=== PATIENT | female | born 1935 | race Asian ===

== ENCOUNTER 2017-08-11 11:36 | Emergency (ER) | payer MEDICARE, MEDICAID ==
[~2017-08-11] VITALS: Ht 154.9 cm; Wt 49.4 kg
[~2017-08-11 11:36] MED LIST: BENA20TA70 PO; NIFE90TA25 PO; SOTA80TA PO
[2017-08-11] MEDS ORDERED: HYDROcodone-ACET 5/325MG TAB PO ONE (16:30)
[2017-08-11 16:48] VITALS: BP 112/63
== END 2017-08-11 16:48 | disposition home or self-care (01) ==
LOC: ER 11:36
DX: M47.26 Other spondylosis with radiculopathy, lumbar region (principal); M10.9 Gout, unspecified; J44.9 Chronic obstructive pulmonary disease, unspecified; I50.9 Heart failure, unspecified; E11.9 Type 2 diabetes mellitus without complications; I11.0 Hypertensive heart disease with heart failure; M54.5 Low back pain; G89.29 Other chronic pain; Z95.0 Presence of cardiac pacemaker; Z90.49 Acquired absence of other specified parts of digestive tract
CPT/HCPCS: 72100

== ENCOUNTER 2018-01-20 11:38 | Inpatient (IN) | payer MEDICARE, MEDICAID ==
[~2018-01-20] VITALS: Ht 152.4 cm; Wt 49.1 kg
[2018-01-20 13:47] LABS: Basophils # (auto) 0.1 uL; Basophils % (auto) 1.3 % (0.0-2.0); Eosinophils # (auto) 0.6 uL; Eosinophils % (auto) 11.2 % (0.0-7.0); Hematocrit 34.7 % (36.0-46.0); Hemoglobin 11.5 g/dL (12.2-16.2); Lymphocytes # (auto) 1.3 uL; Lymphocytes % (auto) 23.5 % (10.0-50.0); Mean Corpuscular Hemoglobin 29.4 pg (28.0-32.0); Mean Corpuscular Hgb Conc. 33.3 g/dL (32.0-36.0); Mean Corpuscular Volume 88.4 fL (80.0-100.0); Monocytes # (auto) 0.4 uL; Monocytes % (auto) 7.5 % (0.0-12.0); Neutrophils # (auto) 3.1 uL; Neutrophils % (auto) 56.5 % (37.0-80.0); Platelet Count (auto) 299 10^3/uL (140-450); Red Blood Cells 3.92 10^6/uL (4.0-5.20); Red Cell Distribution Width 17.8 % (11.8-14.3); White Blood Cell 5.5 10^3/uL (4.4-10.8)
[2018-01-20] MEDS ORDERED: IPRATROPIUM BROM 0.5 MG/2.5ML INH SOL NEB ONE (14:00)
[2018-01-20] MEDS ORDERED: ALBUTEROL SULF 2.5 MG/0.5ML(0.5%) NEB SOLN NEB ONE (14:00)
[2018-01-20 14:05] LABS: Albumin 3.3 g/dL (3.4-5.0); Anion Gap 9 (5-15); Aspartate Aminotransferase 12 U/L (15-37); BUN/Creatinine Ratio 18.7; Blood Urea Nitrogen 25 mg/dL (7-18); Calcium 8.6 mg/dL (8.5-10.1); Carbon Dioxide 25 mmol/L (21-32); Chloride 104 mmol/L (98-107); GFR African American 49 mL/min; GFR Non-African American 40 mL/min; Glucose 94 mg/dL (74-106); Magnesium 2.4 mg/dL (1.6-2.6); Potassium 3.8 mmol/L (3.5-5.1); Sodium 138 mmol/L (136-145)
[2018-01-20 14:12] LABS: Urine Bacteria FEW /hpf (None Seen); Urine Blood Negative /uL (Negative); Urine Mucus FEW (None Seen); Urine Specific Gravity 1.016 (1.001-1.035); Urine WBC 1 /hpf (0 - 5)
[2018-01-20 14:21] LABS: Alanine Aminotransferase 15 U/L (13-56); Alkaline Phosphatase 74 U/L (45-117); Bilirubin, Total 0.2 mg/dL (0.2-1.0); Total Protein 8.4 g/dL (6.4-8.2)
[2018-01-20] MEDS ORDERED: LORazepam 0.5 MG TAB PO PRN (15:45)
[2018-01-20] MEDS ORDERED: TEMAZEPAM 15 MG CAP PO PRN (15:45)
[2018-01-20] MEDS ORDERED: ALBUTEROL SULF 2.5 MG/0.5ML(0.5%) NEB SOLN NEB PRN (15:45)
[2018-01-20] MEDS ORDERED: MORPHINE SULF INJ 2 MG/ML SYRINGE 1ML IV PRN ×2 (15:45)
[2018-01-20] MEDS ORDERED: LACTULOSE 20Gm/30ML SOLN PO PRN (15:45)
[2018-01-20] MEDS ORDERED: NITROGLYCERIN 0.4 MG SL TAB SL PRN (15:45)
[2018-01-20] MEDS ORDERED: PROMETHAZINE HCL 25 MG/ML 1ML IV PRN (15:45)
[2018-01-20] MEDS ORDERED: HYDROcodone-ACET 5/325MG TAB PO PRN (15:45)
[2018-01-20] MEDS ORDERED: DEXTROSE (50%) 50ML SYRG IV PRN (15:45)
[2018-01-20] MEDS ORDERED: ACETAMINOPHEN 500 MG TAB PO PRN (15:45)
[2018-01-20 16:10] VITALS: BP 153/72
[2018-01-20] MEDS ORDERED: NIFE90TA30 PO (16:19)
[2018-01-20] MEDS ORDERED: ALL100T PO (16:20)
[2018-01-20] MEDS ORDERED: ESCI10TA PO (16:21)
[2018-01-20] MEDS ORDERED: DOCU1CAP31 PO (16:21)
[2018-01-20] MEDS ORDERED: ASPI81CH43 PO (16:21)
[2018-01-20] MEDS ORDERED: DOXYCYCLINE 100MG/250ML 250 ML IV ONE (16:30)
[2018-01-20] MEDS ORDERED: methylPREDNISolone SOD SUCC 40 MG/ML VL IV ONE (16:30)
[2018-01-20] MEDS ORDERED: methylPREDNISolone SOD SUCC 40 MG/ML VL IV SCH (16:30)
[2018-01-20] MEDS: PANTOPRAZOLE 40 MG TAB PO SCH (16:50)
[2018-01-20] MEDS: SODIUM CHLORIDE 0.9% 1,000 ML IV SCH (16:51)
[2018-01-20] MEDS: ACCU-CHEK COMFORT CURVE STRIP VI SCH ×2 (17:15→22:00)
[2018-01-20] MEDS: InsuLIN REG 1unit/0.01ml Soln (100units/ml) SC SCH ×2 (17:15→22:00)
[2018-01-20] MEDS: IPRATROPIUM BROM 0.5 MG/2.5ML INH SOL NEB SCH (18:12)
[2018-01-20] MEDS: ALBUTEROL SULF 2.5 MG/0.5ML(0.5%) NEB SOLN NEB SCH (18:12)
[2018-01-20 20:05] VITALS: BP 150/75
[2018-01-20 21:51] VITALS: BP 146/77
[2018-01-21] MEDS: IPRATROPIUM BROM 0.5 MG/2.5ML INH SOL NEB SCH ×2 (00:16→19:54)
[2018-01-21] MEDS: ALBUTEROL SULF 2.5 MG/0.5ML(0.5%) NEB SOLN NEB SCH ×2 (00:16→19:55)
[2018-01-21 04:40] VITALS: BP 149/77
[2018-01-21] MEDS: SODIUM CHLORIDE 0.9% 1,000 ML IV SCH (04:58)
[2018-01-21] MEDS: DOXYCYCLINE 100MG/250ML 250 ML IV SCH ×2 (05:50→17:38)
[2018-01-21] MEDS: ACCU-CHEK COMFORT CURVE STRIP VI SCH ×4 (05:59→22:23)
[2018-01-21] MEDS ORDERED: methylPREDNISolone SOD SUCC 40 MG/ML VL IV SCH (06:00)
[2018-01-21] MEDS: InsuLIN REG 1unit/0.01ml Soln (100units/ml) SC SCH ×4 (06:00→22:00)
[2018-01-21 06:05] LABS: Albumin 2.8 g/dL (3.4-5.0); BUN/Creatinine Ratio 20.5; Bilirubin, Total 0.2 mg/dL (0.2-1.0); Calcium 8.3 mg/dL (8.5-10.1); Potassium 3.8 mmol/L (3.5-5.1); Total Protein 7.3 g/dL (6.4-8.2)
[2018-01-21 08:35] VITALS: BP 145/76
[2018-01-21] MEDS: SOTALOL HCL 80 MG TAB PO SCH (09:16)
[2018-01-21] MEDS: PANTOPRAZOLE 40 MG TAB PO SCH (09:17)
[2018-01-21] MEDS: HCTZ 25 MG TAB PO SCH (09:18)
[2018-01-21] MEDS: BENAZEPRIL HCL 10 MG TAB PO SCH (09:20)
[2018-01-21] MEDS ORDERED: HYDROCHLOROTHIAZIDE PO SCH (10:00)
[2018-01-21] MEDS ORDERED: ENOXAPARIN SOD 30 MG/0.3 ML SYRINGE SC SCH (10:00)
[2018-01-21] MEDS ORDERED: BENAZEPRIL PO SCH (10:00)
[2018-01-21] MEDS ORDERED: MORPHINE SULF INJ 2 MG/ML SYRINGE 1ML IV PRN (11:00)
[2018-01-21 12:17] VITALS: BP 141/69
[2018-01-21 16:51] VITALS: BP 138/72
[2018-01-21 22:08] VITALS: BP 144/72
[2018-01-22] MEDS: IPRATROPIUM BROM 0.5 MG/2.5ML INH SOL NEB SCH ×4 (00:19→18:58)
[2018-01-22] MEDS: ALBUTEROL SULF 2.5 MG/0.5ML(0.5%) NEB SOLN NEB SCH ×4 (00:19→18:58)
[2018-01-22 04:13] LABS: BUN/Creatinine Ratio 13.2; Calcium 9.6 mg/dL (8.5-10.1); Potassium 3.6 mmol/L (3.5-5.1)
[2018-01-22 05:01] VITALS: BP 170/78
[2018-01-22] MEDS: DOXYCYCLINE 100MG/250ML 250 ML IV SCH ×2 (08:13→17:35)
[2018-01-22] MEDS: ACCU-CHEK COMFORT CURVE STRIP VI SCH ×4 (08:14→22:00)
[2018-01-22] MEDS: InsuLIN REG 1unit/0.01ml Soln (100units/ml) SC SCH ×4 (08:14→22:00)
[2018-01-22] MEDS: PANTOPRAZOLE 40 MG TAB PO SCH (08:38)
[2018-01-22] MEDS: predniSONE 20 MG TAB PO SCH (08:38)
[2018-01-22] MEDS: HCTZ 25 MG TAB PO SCH (08:39)
[2018-01-22] MEDS: BENAZEPRIL HCL 10 MG TAB PO SCH (08:40)
[2018-01-22] MEDS: SOTALOL HCL 80 MG TAB PO SCH (08:40)
[2018-01-22 09:00] VITALS: BP 155/84
[2018-01-22 13:00] VITALS: BP 157/87
[2018-01-22 17:00] VITALS: BP 184/83
[2018-01-22 22:00] VITALS: BP 100/80
[2018-01-23] VITALS (7 sets, daily range): BP systolic 103–183; BP diastolic 60–97
[2018-01-23] MEDS: IPRATROPIUM BROM 0.5 MG/2.5ML INH SOL NEB SCH ×3 (00:14→11:55)
[2018-01-23] MEDS: ALBUTEROL SULF 2.5 MG/0.5ML(0.5%) NEB SOLN NEB SCH ×3 (00:14→11:55)
[2018-01-23] MEDS: DOXYCYCLINE 100MG/250ML 250 ML IV SCH (06:29)
[2018-01-23] MEDS: ACCU-CHEK COMFORT CURVE STRIP VI SCH ×3 (07:00→17:00)
[2018-01-23] MEDS: InsuLIN REG 1unit/0.01ml Soln (100units/ml) SC SCH ×3 (07:00→17:00)
[2018-01-23] MEDS: predniSONE 20 MG TAB PO SCH (09:41)
[2018-01-23] MEDS: PANTOPRAZOLE 40 MG TAB PO SCH (09:42)
[2018-01-23] MEDS: SOTALOL HCL 80 MG TAB PO SCH (09:42)
[2018-01-23] MEDS: BENAZEPRIL HCL 10 MG TAB PO SCH (09:43)
[2018-01-23] MEDS: HCTZ 25 MG TAB PO SCH (09:43)
[2018-01-23 13:42] LABS: Basophils # (auto) 0 uL; Basophils % (auto) 0.5 % (0.0-2.0); Eosinophils # (auto) 0.1 uL; Eosinophils % (auto) 0.9 % (0.0-7.0); Hematocrit 37.6 % (36.0-46.0); Hemoglobin 12.4 g/dL (12.2-16.2); Lymphocytes # (auto) 0.8 uL; Lymphocytes % (auto) 11.8 % (10.0-50.0); Mean Corpuscular Hemoglobin 28.9 pg (28.0-32.0); Mean Corpuscular Volume 87.7 fL (80.0-100.0); Monocytes # (auto) 0.2 uL; Monocytes % (auto) 2.5 % (0.0-12.0); Neutrophils % (auto) 84.3 % (37.0-80.0); Platelet Count (auto) 312 10^3/uL (140-450); Red Blood Cells 4.29 10^6/uL (4.0-5.20); Red Cell Distribution Width 17.9 % (11.8-14.3); White Blood Cell 7.1 10^3/uL (4.4-10.8)
[2018-01-23 14:00] LABS: BUN/Creatinine Ratio 27.5; Calcium 8.4 mg/dL (8.5-10.1); Potassium 4.2 mmol/L (3.5-5.1)
== END 2018-01-23 19:00 | disposition home or self-care (01) | DRG 202 ==
LOC: ER 11:38 → EDBD 11:38 → TELE 11:39 → TELE-CENTR 20:05 → CENTRAL 01-21 17:12
PROVIDERS: ADMIT Internal Medicine; ATTEND Internal Medicine
DX: J20.9 Acute bronchitis, unspecified (principal); J44.0 Chronic obstructive pulmonary disease with (acute) lower respiratory infection; I13.0 Hypertensive heart and chronic kidney disease with heart failure and stage 1 through stage 4 chronic kidney disease, or unspecified chronic kidney disease; I50.32 Chronic diastolic (congestive) heart failure; J44.1 Chronic obstructive pulmonary disease with (acute) exacerbation; Z82.49 Family history of ischemic heart disease and other diseases of the circulatory system; M54.9 Dorsalgia, unspecified; M10.9 Gout, unspecified; N18.3 Chronic kidney disease, stage 3 (moderate); Z95.0 Presence of cardiac pacemaker; Z90.49 Acquired absence of other specified parts of digestive tract; Z79.82 Long term (current) use of aspirin; E11.22 Type 2 diabetes mellitus with diabetic chronic kidney disease
CPT/HCPCS: 36415; 71045; 71046; 80048; 80053; 80061; 81001; 82962; 83036; 83735; 83880; 84484; 85025; 85379; 93005; 94640; 96361; 96365; 96375; 97110; 97116; 97163; 97530; J1815; J3490